=== PATIENT | female | born 1985 | race Two or more races ===

== ENCOUNTER 2017-05-25 16:37 | Inpatient (IN) | payer MEDICARE, OTHER ==
[~2017-05-25] VITALS: Ht 160 cm; Wt 103.0 kg
[~2017-05-25 16:37] MED LIST: BIOTIN PO; FLUT9.9S NS; HYDR-2766 PO; HYDR-963 PO; IBUP-1060 PO; LORA10TA3 PO; MIRENA VAG; MULT1TAB52 PO; OXYC-327 PO
--- NOTE | 2017-05-25 17:46 | PDOC1 ---
OB - History Hx of Present Care: Good Care Ultrasounds: Abnormal US findings (cervical funneling with cervical length less than 0.5 cm at MFM visit. Pessary placed at that time. ) Obstetrical Complications: Other (H/o PTD x2) Medical Complications: Other (Family h/o blood clots) Past Family/Social History * Past Medical, Surgical, Family and Obstetric Histories reviewed from chart. Rubella: Immune RPR/VDRL: Negative GBS Status: Unknown HBsAG: Negative OB - Chief Complaint & HPI Date of Admission: Date of Admission: May 25, 2017 at 16:37 Chief Complaint/History : 3 Para: 2 EGA: 20 Reason for admission: labor Admission Nurse Assessment Rev: Yes Problems: OB - Admission Exam Physical Exam HEENT: Normal Heart: Regular Rate Lungs: Clear Abdomen: Gravid, Non tender, Soft Extremities: Normal Pulses, No tenderness or swelling Reflexes: Normal Cervical Dilatation: 10cm Effacement: 100% Station: -1 Membranes: Intact Heart Rate: Normal Accelerations: Accelerations Present Decelerations: No decelerations Contractions on Admission: None Intensity: Mild Text A: 20 wks IUP PTL with pessary in place H/o PTD x 2 Family h/o blood clotting d/o P: Admit for comfort care. Labs and IV fluids. Sono today. LIAN HUITRON Jr, MD May 25, 2017 17:46
[2017-05-25] MEDS ORDERED: LIDOCAINE 1% PF 30 ML VIAL. INJ PRN (18:00)
[2017-05-25] MEDS ORDERED: TERBUTALINE 1 MG/ML VIAL. SQ PRN (18:00)
[2017-05-25] MEDS ORDERED: OXYTOCIN 30 UNIT/500 ML PREMIX 500 ML IV PRN (18:00)
[2017-05-25] MEDS ORDERED: 0.9 % SODIUM CHLORIDE 10 ML DISP.SYRIN. IV PRN (18:00)
--- NOTE | 2017-05-25 19:04 | RAD ---
Indication: Patient 20 weeks fully dilated. There is a live intrauterine fetus of approximately 21 weeks 5 days gestation. heart rate was recorded at 152 bpm. Fetus is in a breech presentation. The placenta is anterior. The cervix is open. Biometry measurements are as follows: BPD 4.9 cm 20 weeks 6 days, head circumference 19.3 cm 21 weeks 4 days, abdominal circumference 16.5 cm 21 weeks 4 days, femur length 4.0 cm 23 weeks 0 days. Estimated weight is 1 lb. 1 oz. is. IMPRESSION: Single live IUP approximately 21-22 weeks gestational age. The fetus is breech. The cervix is open with membranes extending into the endocervical canal. Estimated weight is 1 lb. 1 oz. Electronically signed by: Marcelo Lux MD (05/25/2017 7:02 PM) [facility]
[2017-05-25 19:46] LABS: HEMATOCRIT 38.4 % (36.0-47.0); HEMOGLOBIN 12.7 g/dL (12.0-15.5); RED BLOOD COUNT 4.47 x10^6/uL (3.50-5.40); RED CELL DISTRIBUTION WIDTH 13.5 % (11.5-14.5); WHITE BLOOD COUNT 10.8 x10^3/uL (4.0-11.0)
[2017-05-25 20:36] VITALS: BP 119/72
[2017-05-25] MEDS: IV RINGERS,LACTATED 1000ML 1,000 ML IV SCH (21:06)
[2017-05-26] MEDS ORDERED: ASPIRIN CHEWABLE 81 MG TABLET. PO SCH ×2 (08:00→21:00)
[2017-05-26] MEDS ORDERED: DOCUSATE SODIUM 100 MG CAPSULE. PO SCH (09:00)
[2017-05-26 11:48] LABS: BILIRUBIN,URINE NEGATIVE (NEG); GLUCOSE,URINE NEGATIVE (NEG); NITRITE,URINE NEGATIVE (NEG); PH,URINE 7.5; PROTEIN,URINE 30 mg/dL (NEG-TRACE); UROBILINOGEN,URINE 0.2 mg/dL (0.2 mg/dL)
[2017-05-26 11:50] LABS: BACTERIA,URINE FEW /HPF (0-FEW); SQUAMOUS EPITHELIAL CELL,UR MOD /LPF
--- NOTE | 2017-05-26 13:58 | PDOC ---
OB Progress Note Date of Service 05/26/17 Time of Evaluation 1350 Notes Pt. reports occasional contractions and vaginal spotting. Counseled on plan of care. Lab Laboratory Tests Test 05/25/17 19:25 05/26/17 10:45 White Blood Count 10.8 x10^3/uL (4.0-11.0) Red Blood Count 4.47 x10^6/uL (3.50-5.40) Hemoglobin 12.7 g/dL (12.0-15.5) Hematocrit 38.4 % (36.0-47.0) Mean Corpuscular Volume 86 fL (79-100) Mean Corpuscular Hemoglobin 28 pg (25-35) Mean Corpuscular Hemoglobin Concent 33 g/dL (31-37) Red Cell Distribution Width 13.5 % (11.5-14.5) Platelet Count 172 x10^3/uL (140-400) Urine Collection Type Unknown Urine Color Yellow Urine Clarity Clear Urine pH 7.5 Urine Specific [place] 1.010 Urine Protein 30 mg/dL (NEG-TRACE) Urine Glucose (UA) Negative mg/dL (NEG) Urine Ketones (Stick) Negative mg/dL (NEG) Urine Blood Large (NEG) Urine Nitrite Negative (NEG) Urine Bilirubin Negative (NEG) Urine Urobilinogen Dipstick 0.2 mg/dL (0.2 mg/dL) Urine Leukocyte Esterase Moderate (NEG) Urine RBC 11-20 /HPF (0-2) Urine WBC 1-4 /HPF (0-4) Urine Squamous Epithelial Cells Mod /LPF Urine Bacteria Few /HPF (0-FEW) Laboratory Tests Test 05/25/17 19:25 05/26/17 10:45 White Blood Count 10.8 x10^3/uL (4.0-11.0) Red Blood Count 4.47 x10^6/uL (3.50-5.40) Hemoglobin 12.7 g/dL (12.0-15.5) Hematocrit 38.4 % (36.0-47.0) Mean Corpuscular Volume 86 fL (79-100) Mean Corpuscular Hemoglobin 28 pg (25-35) Mean Corpuscular Hemoglobin Concent 33 g/dL (31-37) Red Cell Distribution Width 13.5 % (11.5-14.5) Platelet Count 172 x10^3/uL (140-400) Urine Collection Type Unknown Urine Color Yellow Urine Clarity Clear Urine pH 7.5 Urine Specific [place] 1.010 Urine Protein 30 mg/dL (NEG-TRACE) Urine Glucose (UA) Negative mg/dL (NEG) Urine Ketones (Stick) Negative mg/dL (NEG) Urine Blood Large (NEG) Urine Nitrite Negative (NEG) Urine Bilirubin Negative (NEG) Urine Urobilinogen Dipstick 0.2 mg/dL (0.2 mg/dL) Urine Leukocyte Esterase Moderate (NEG) Urine RBC 11-20 /HPF (0-2) Urine WBC 1-4 /HPF (0-4) Urine Squamous Epithelial Cells Mod /LPF Urine Bacteria Few /HPF (0-FEW) Medications Current Medications Sodium Chloride (Normal Saline Flush) 3 ml QSHIFT PRN IV AFTER MEDS AND BLOOD DRAWS; Start 05/25/17 at 18:00 Ringer's Solution 1,000 ml @ 125 mls/hr Q8H IV Last administered on 05/25/17 21:06; Start 05/25/17 at 17:55 Fentanyl Citrate (Fentanyl 2ml Vial) 100 mcg PRN Q20MIN PRN IV Labor pain; Start 05/25/17 at 18:00 Terbutaline Sulfate (Brethine) 0.25 mg 1X PRN PRN SQ SEE COMMENTS; Start at 18:00; Stop 05/26/17 at 17:59 Lidocaine HCl 30 ml 1X PRN PRN INJ SEE COMMENTS; Start 05/25/17 at 18:00; Stop 05/27/17 at 17:59 Oxytocin/Sodium Chloride 500 ml @ 0 mls/hr CONT PRN PRN IV Post delivery bleeding; Start 05/25/17 at 18:00 Aspirin (Children'S Aspirin) 81 mg DAILYWBKFT PO Last administered on 05/25/17 21:06; Start 05/26/17 at 08:00; Stop 05/26/17 at 08:00; Status DC Aspirin (Children'S Aspirin) 81 mg QHS PO ; Start 05/26/17 at 21:00 Docusate Sodium (Colace) 100 mg DAILY PO Last administered on 05/26/17 09:44; Start 05/26/17 at 09:00 Active Scripts Active Percocet 7.5-325 Mg Tablet (Oxycodone/Acetaminophen) 1 Each Tablet 1-2 Tab PO PRN Q6HRS PRN Reported [Mirena] VAG Not taken while in hosp. May resume at home as directed. Loratadine 10 Mg Tablet 1 Tab PO DAILY Not given in hosp. May resume at home as directed as needed. [Biotin] 1,000 Mcg PO DAILY Not taken while in hosp. May resume at home as directed Multivitamins (Multivitamin) 1 Each Tablet 1 Tab PO DAILY Not given while in hosp. MAy resume at home as directed as needed. Flonase Allergy Relief (Fluticasone Propionate) 9.9 Ml [place].susp 9.9 Ml NS PRN PRN Not given while in hosp. May resume at home as directed as needed Ibuprofen 800 Mg Tablet 1 Tab PO PRN BID PRN Not taken while in hosp. May resume at home as directed as needed. Exam Abd: soft, non tender Assessment 20+4 wks IUP PTL Plan of Care: Continue current Tx, Mgmt LIAN HUITRON Jr, MD May 26, 2017 13:58
[2017-05-26] MEDS ORDERED: hydrOXYzine PAMOATE 25 MG CAPSULE PO PRN (14:15)
[2017-05-26] MEDS: fentaNYL PF VIAL 100 MCG/2 ML VIAL IV PRN ×3 (15:40→17:46)
[2017-05-26] MEDS: IV RINGERS,LACTATED 1000ML 1,000 ML IV SCH (16:49)
[2017-05-26] MEDS: BUTORPHANOL 2 MG/ML VIAL. IV PRN ×2 (18:36→22:37)
--- NOTE | 2017-05-26 20:42 | PDOC ---
VAGINAL DELIVERY DATE DATE: 05/26/17 TIME: 20:40 : 3 Para: 3 EGA: 20 VAGINAL DELIVERY: VTX VACCUM ASSISTED: No PLACENTA: Manual 0/0 SEX: Female WEIGHT Weight [345 gm ] Nuchal Cord: No Amniotic Fluid: Clear PAIN: Natural EPISIOTOMY: No EXTENSION: No EBL 200 ml COMPLICATIONS IUFD CONDITION pt. stable Signs of Intrauterine Infectio: None Shoulder Dystocia: No Problems: LIAN HUITRON Jr, MD May 26, 2017 20:42
[2017-05-26] MEDS ORDERED: OXYTOCIN 30 UNIT/500 ML PREMIX 500 ML IV PRN (20:45)
[2017-05-26] MEDS ORDERED: oxyCODONE/APAP 5/325 1 TAB TABLET PO PRN (20:45)
[2017-05-26] MEDS ORDERED: SIMETHICONE 80 MG TAB.CHEW PO PRN (20:45)
[2017-05-26] MEDS ORDERED: HYDROCORTISONE 1% TOPICAL OINTMENT 30GM TUBE. TP PRN (20:45)
[2017-05-26] MEDS ORDERED: PHENYLEPH/MINERAL OIL/PETROLAT RECTAL OINTMENT 28GM TUBE. RC PRN (20:45)
[2017-05-26] MEDS ORDERED: diphenhydrAMINE HCL 25 MG CAPSULE PO PRN (20:45)
[2017-05-26] MEDS ORDERED: MAGNESIUM HYDROXIDE 2,400 MG/30 ML ORAL.SUSP. PO PRN (20:45)
[2017-05-26] MEDS ORDERED: MAG HYDROX/ALUMINUM HYD/SIMETH 30 ML ORAL.SUSP PO PRN (20:45)
[2017-05-26] MEDS ORDERED: MMR per PROTOCOL. MC PRN (20:45)
[2017-05-26] MEDS ORDERED: ZOLPIDEM 5 MG TABLET. PO PRN (20:45)
[2017-05-26] MEDS ORDERED: DOCUSATE SODIUM 100 MG CAPSULE. PO PRN (20:45)
[2017-05-26] MEDS ORDERED: BENZOCAINE 20% TOPICAL AEROSOL SPRAY 57GM CAN. TP PRN (20:45)
[2017-05-26] MEDS ORDERED: ACETAMINOPHEN 325 MG TABLET. PO PRN (20:45)
[2017-05-26] MEDS ORDERED: 0.9 % SODIUM CHLORIDE 10 ML DISP.SYRIN. IV PRN (20:45)
[2017-05-26] MEDS: IBUPROFEN 800 MG TABLET. PO PRN (22:37)
[2017-05-26 23:26] VITALS: BP 112/58
[2017-05-27 04:37] VITALS: BP 109/62
[2017-05-27 07:02] LABS: BASO % 0 % (0-3); EOS % 1 % (0-3); HEMOGLOBIN 10.5 g/dL (12.0-15.5); LYMPH # 1.7 x10^3/uL (1.0-4.8); LYMPH % 11 % (24-48); MEAN CORPUSCULAR HEMOGLOBIN 29 pg (25-35); MEAN CORPUSCULAR HGB CONC 34 g/dL (31-37); MEAN CORPUSCULAR VOLUME 86 fL (79-100); MONO % 6 % (0-9); NEUT % 82 % (31-73); PLATELET COUNT 141 x10^3/uL (140-400); RED CELL DISTRIBUTION WIDTH 13.5 % (11.5-14.5); WHITE BLOOD COUNT 14.9 x10^3/uL (4.0-11.0)
[2017-05-27] MEDS ORDERED: FERROUS SULFATE 325 MG TABLET. PO SCH (08:00)
[2017-05-27] MEDS: IBUPROFEN 800 MG TABLET. PO PRN (09:00)
[2017-05-27 11:20] VITALS: BP 109/65
[2017-05-27 13:45] VITALS: BP 107/64
--- NOTE | 2017-05-27 14:04 | PDOC ---
OB Progress Note Date of Service 05/27/17 Time of Evaluation 1400 Notes PT. feeling well. GOod family support. Lochia minimal. Pain controlled. Lab Laboratory Tests Test 05/25/17 19:25 05/26/17 10:45 05/27/17 06:18 White Blood Count 10.8 x10^3/uL (4.0-11.0) 14.9 x10^3/uL (4.0-11.0) Red Blood Count 4.47 x10^6/uL (3.50-5.40) 3.60 x10^6/uL (3.50-5.40) Hemoglobin 12.7 g/dL (12.0-15.5) 10.5 g/dL (12.0-15.5) Hematocrit 38.4 % (36.0-47.0) 31.0 % (36.0-47.0) Mean Corpuscular Volume 86 fL (79-100) 86 fL (79-100) Mean Corpuscular Hemoglobin 28 pg (25-35) 29 pg (25-35) Mean Corpuscular Hemoglobin Concent 33 g/dL (31-37) 34 g/dL (31-37) Red Cell Distribution Width 13.5 % (11.5-14.5) 13.5 % (11.5-14.5) Platelet Count 172 x10^3/uL (140-400) 141 x10^3/uL (140-400) Urine Collection Type Unknown Urine Color Yellow Urine Clarity Clear Urine pH 7.5 Urine Specific [place] 1.010 Urine Protein 30 mg/dL (NEG-TRACE) Urine Glucose (UA) Negative mg/dL (NEG) Urine Ketones (Stick) Negative mg/dL (NEG) Urine Blood Large (NEG) Urine Nitrite Negative (NEG) Urine Bilirubin Negative (NEG) Urine Urobilinogen Dipstick 0.2 mg/dL (0.2 mg/dL) Urine Leukocyte Esterase Moderate (NEG) Urine RBC 11-20 /HPF (0-2) Urine WBC 1-4 /HPF (0-4) Urine Squamous Epithelial Cells Mod /LPF Urine Bacteria Few /HPF (0-FEW) Neutrophils (%) (Auto) 82 % (31-73) Lymphocytes (%) (Auto) 11 % (24-48) Monocytes (%) (Auto) 6 % (0-9) Eosinophils (%) (Auto) 1 % (0-3) Basophils (%) (Auto) 0 % (0-3) Neutrophils # (Auto) 12.2 x10^3uL (1.8-7.7) Lymphocytes # (Auto) 1.7 x10^3/uL (1.0-4.8) Monocytes # (Auto) 0.9 x10^3/uL (0.0-1.1) Eosinophils # (Auto) 0.1 x10^3/uL (0.0-0.7) Basophils # (Auto) 0.0 x10^3/uL (0.0-0.2) Laboratory Tests Test 05/27/17 06:18 White Blood Count 14.9 x10^3/uL (4.0-11.0) Red Blood Count 3.60 x10^6/uL (3.50-5.40) Hemoglobin 10.5 g/dL (12.0-15.5) Hematocrit 31.0 % (36.0-47.0) Mean Corpuscular Volume 86 fL (79-100) Mean Corpuscular Hemoglobin 29 pg (25-35) Mean Corpuscular Hemoglobin Concent 34 g/dL (31-37) Red Cell Distribution Width 13.5 % (11.5-14.5) Platelet Count 141 x10^3/uL (140-400) Neutrophils (%) (Auto) 82 % (31-73) Lymphocytes (%) (Auto) 11 % (24-48) Monocytes (%) (Auto) 6 % (0-9) Eosinophils (%) (Auto) 1 % (0-3) Basophils (%) (Auto) 0 % (0-3) Neutrophils # (Auto) 12.2 x10^3uL (1.8-7.7) Lymphocytes # (Auto) 1.7 x10^3/uL (1.0-4.8) Monocytes # (Auto) 0.9 x10^3/uL (0.0-1.1) Eosinophils # (Auto) 0.1 x10^3/uL (0.0-0.7) Basophils # (Auto) 0.0 x10^3/uL (0.0-0.2) Medications Current Medications Sodium Chloride (Normal Saline Flush) 3 ml QSHIFT PRN IV AFTER MEDS AND BLOOD DRAWS; Start 05/25/17 at 18:00 Ringer's Solution 1,000 ml @ 125 mls/hr Q8H IV Last administered on 05/26/17 16:49; Start 05/25/17 at 17:55 Fentanyl Citrate (Fentanyl 2ml Vial) 100 mcg PRN Q20MIN PRN IV Labor pain Last administered on 05/26/17 17:46; Start 05/25/17 at 18:00 Terbutaline Sulfate (Brethine) 0.25 mg 1X PRN PRN SQ SEE COMMENTS; Start at 18:00; Stop 05/26/17 at 17:59; Status DC Lidocaine HCl 30 ml 1X PRN PRN INJ SEE COMMENTS; Start 05/25/17 at 18:00; Stop 05/27/17 at 17:59 Oxytocin/Sodium Chloride 500 ml @ 0 mls/hr CONT PRN PRN IV Post delivery bleeding Last administered on 05/26/17 19:09; Start 05/25/17 at 18:00 Aspirin (Children'S Aspirin) 81 mg DAILYWBKFT PO Last administered on 05/25/17 21:06; Start 05/26/17 at 08:00; Stop 05/26/17 at 08:00; Status DC Aspirin (Children'S Aspirin) 81 mg QHS PO ; Start 05/26/17 at 21:00 Docusate Sodium (Colace) 100 mg DAILY PO Last administered on 05/26/17 09:44; Start 05/26/17 at 09:00 Hydroxyzine Pamoate (Vistaril) 25 mg PRN Q6HRS PRN PO ITCHING Last administered on 05/26/17 14:30; Start 05/26/17 at 14:15 Butorphanol Tartrate (Stadol) 2 mg PRN Q4HRS PRN IV PAIN Last administered on 22:37; Start 05/26/17 at 18:30 Sodium Chloride (Normal Saline Flush) 10 ml QSHIFT PRN IV AFTER MEDS AND BLOOD DRAWS; Start 05/26/17 at 20:45 Oxytocin/Sodium Chloride 500 ml @ 62.5 mls/hr CONT PRN IV SEE I/O RECORD; Start 05/26/17 at 20:45; Stop 05/27/17 at 04:44; Status DC Acetaminophen (Tylenol) 650 mg PRN Q6HRS PRN PO MILD PAIN / TEMP; Start at 20:45 Ibuprofen (Motrin) 800 mg PRN Q8HRS PRN PO INFLAMMATION/PAIN PREVENTION Last administered on 05/27/17 09:00; Start 05/26/17 at 20:45 Docusate Sodium (Colace) 100 mg PRN BID PRN PO CONSTIPATION Last administered on 05/27/17 09:00; Start 05/26/17 at 20:45 Magnesium Hydroxide (Milk Of Magnesia) 2,400 mg PRN DAILY PRN PO CONSTIPATION; Start 05/26/17 at 20:45 Al Hydroxide/Mg Hydroxide (Mylanta Plus Xs) 30 ml PRN Q4HRS PRN PO HEARTBURN / GAS; Start 05/26/17 at 20:45 Simethicone (Gas-X) 80 mg PRN AFTMEALHC PRN PO GAS / BLOATING; Start 05/26/17 at 20:45 Diphenhydramine HCl (Benadryl) 25 mg PRN Q6HRS PRN PO ITCHING; Start 05/26/17 at 20:45 Benzocaine (Americaine) 1 spray PRN QID PRN TP TOPICAL PAIN Last administered on 05/26/17 22:37; Start 05/26/17 at 20:45 Phenyleph/Shark Oil/Min Oil/Petrol (Preparation H) 1 [place] PRN QID PRN RC RECTAL PAIN; Start 05/26/17 at 20:45 Hydrocortisone (Cortaid) 1 [place] PRN QID PRN TP PERINEAL PAIN; Start 05/26/17 at 20:45 Ferrous Sulfate (Feosol) 325 mg BIDWMEALS PO ; Start 05/27/17 at 08:00 Zolpidem Tartrate (Ambien) 5 mg PRN QHS PRN PO INSOMNIA, MAY REPEAT X1; Start 05/26/17 at 20:45 Info (Do NOT chart on this placeholder) 1 ea 1X PRN PRN MC SEE COMMENTS; Start 05/26/17 at 20:45 Info (Do NOT chart on this placeholder) 1 ea 1X PRN PRN MC SEE COMMENTS; Start 05/26/17 at 20:45 Oxycodone/ Acetaminophen (Percocet 5/325) 2 tab PRN Q4HRS PRN PO MODERATE PAIN , SEVERE PAIN; Start 05/26/17 at 20:45 Active Scripts Active Percocet 7.5-325 Mg Tablet (Oxycodone/Acetaminophen) 1 Each Tablet 1-2 Tab PO PRN Q6HRS PRN Reported [Mirena] VAG Not taken while in hosp. May resume at home as directed. Loratadine 10 Mg Tablet 1 Tab PO DAILY Not given in hosp. May resume at home as directed as needed. [Biotin] 1,000 Mcg PO DAILY Not taken while in hosp. May resume at home as directed Multivitamins (Multivitamin) 1 Each Tablet 1 Tab PO DAILY Not given while in hosp. MAy resume at home as directed as needed. Flonase Allergy Relief (Fluticasone Propionate) 9.9 Ml [place].susp 9.9 Ml NS PRN PRN Not given while in hosp. May resume at home as directed as needed Ibuprofen 800 Mg Tablet 1 Tab PO PRN BID PRN Not taken while in hosp. May resume at home as directed as needed. Exam Abd: soft, non tender, fundus firm Assessment PPD#1 s/p of IUFD Plan of Care: See new orders (D/c home) LIAN HUITRON Jr, MD May 27, 2017 14:04
--- NOTE | 2017-05-27 14:04 | DISCH ---
DISCHARGE INSTRUCTIONS Condition on Discharge Condition on Discharge: Stable Activity After Discharge Activity Instructions for Disc: Activity as tolerated Lifting Instructions after Dis: No heavy lifting Driving Instructions after Dis: Do not drive today Diet after Discharge Diet after Discharge: Regular Contacting the DRNatalia after DC Call your doctor for: Concerns you may have Follow-Up Follow up with: Dr. Holm in 2 week. LIAN HOLM Jr, MD May 27, 2017 14:04
[2017-05-27 22:07] LABS: RPR REFLEX Non Reactive (Non Reactive)
--- NOTE | 2017-05-31 16:01 | PATHOLOGY ---
PATHOLOGY REPORT * * * * * * * * FINAL DIAGNOSIS: Placenta, " vaginal delivery, gestational age 20.4 weeks": - Placental weight 122 grams. - Three-vessel umbilical cord eccentrically located without any knots or helical twisting. - Moderate acute funisitis. - Moderate acute chorioamnionitis. - Retromembranous hematoma. - Mild meconium staining of membrane. - Intravillous edema. - Intraplacental hematoma. - Severely grossly disrupted placenta with moderate amount of adherent blood coagulum. (SHA:mgr; 05/31/2017) COMMENT: This case will also be reviewed by another pathologist and if there are any changes an additional report will follow. REPORT ELECTRONICALLY SIGNED BY: Rico Hardy M.D. DATE/TIME: 05/31/2017 16:00 * * * * * * * * GROSS PATHOLOGY: The specimen is received in formalin labeled "Yeyo Rowell, placenta". Received is a 122 g severely disrupted placenta measuring 10.3 x 10.2 x 2.9 cm in greatest dimensions. There is a scant amount of pale guthrie, translucent membranes present. The site of membrane rupture cannot be determined. The surface is disrupted in appearance and displays a normal arborizing vasculature pattern. The 3 vessel umbilical cord measures 19.5 cm in length by 1.1 cm in diameter and inserts acentrically, 2.5 cm from the closest distal margin. The umbilical cord is white-guthrie lowery in appearance with no evidence of helical twisting. The maternal surface is disrupted and shaggy in appearance. A moderate amount of adherent blood coagulum is present. Sectioning reveals light brown cut surfaces with no grossly distinct nodules or lesions. The specimen is submitted representatively as follows: A1 umbilical cordA2 surface vessels and membrane roll A3 full-thickness placental cross-section A4 international representative sections from area of disruption. (CAA; 05/30/2017) INITIAL CPT CODE(S): A; 32814 Professional services performed by [facility] at [address] [address] Technical services performed by [facility] at [address] [place] [address], [address], [place] [address]. SPECIMEN(S) RECEIVED: A.Placenta-20.4 week gestation CLINICAL HISTORY: vaginal delivery of 12oz female @ 1902 on 7/8/17, apgars 1-1-1, EDC 10/09/17, PATIENT: YEYO ROWELL /AGE: 908/13/1985 (Age: 31) PATIENT #: [id number] ALT CASE #: SPECIMEN COLLECTION DATE: 05/26/2017 SPECIMEN RECEIVED DATE: 05/28/2017 [facility] - [address] [place] [address] - PHONE: [phone] * * * END OF REPORT * * *
== END 2017-05-27 14:50 | disposition home or self-care (01) | DRG 775 ==
LOC: 3 SO LND 16:37 → OBSVTOIN 16:37 → 3 NORTH 05-26 22:50
PROVIDERS: ADMIT Obstetrics & Gynecology; ATTEND Obstetrics & Gynecology
PROC: 10E0XZZ Delivery of Products of Conception, External Approach (ICD-10-PCS; principal; 2017-05-26)
DX: O36.4XX0 Maternal care for intrauterine death, not applicable or unspecified (principal); Z37.1 Single stillbirth; Z3A.20 20 weeks gestation of pregnancy
CPT/HCPCS: 36415; 76815; 81001; 85027; 86593; 86850; 86900; 86901; C1887; G0378; J2590; J3010; J7120; Q0177

== ENCOUNTER 2017-05-29 20:48 | Emergency (ER) | payer MEDICARE, OTHER ==
[~2017-05-29] VITALS: Ht 167.6 cm; Wt 102.5 kg
--- NOTE | 2017-05-29 21:48 | PHYS DOC ---
Past Medical History Additional Past Medical Histor: miscarraige Alcohol Use: Rarely Drug Use: None Adult General Chief Complaint Chief Complaint: VAGINAL BLEEDING HPI HPI 31 yo F s/p a miscaraige on the 27 of may here on the OB floor. She presents to the ED with vag bleeding. she reports 1 pad per hour for a few hours. onset today. location . duration intermittent. no alleviating or exacerbating factors. Rh + on chart review. ROS neg for syncope, vision changes, n/v/d, cp, soa. all other ros is neg unless noted in HPI. ed course: 31 y.o F presenting to the ED with vaginal bleeding. vitals: [ Unremarkable]. Abd is physical exam is soft and nontender. orthostatic unremarkable. pt given ivf. pt has appt with dori in the am. Pt d/[place] with return precautions. I discussed with Dr. Caballero and he agrees with plan to see the patient on morning in clinic. Current Medications Current Medications Current Medications Medications (Trade) Dose Ordered Sig/[place] Start Time Stop Time Status Last Admin Dose Admin Sodium Chloride 1,000 ml @ 1,000 mls/hr 1X ONCE 05/29/17 22:00 05/29/17 22:44 DC 05/29/17 21:46 1,000 MLS/HR Allergies Allergies Allergies Coded Allergies Type Severity Reaction Last Updated Verified No Known Drug Allergies 02/28/16 No Physical Exam Physical Exam Constitutional: Well developed, well nourished, no acute distress, non-toxic appearance. [] HENT: Normocephalic, atraumatic, bilateral external ears normal, oropharynx moist, no oral exudates, nose normal. [] Eyes: PERRLA, EOMI, conjunctiva normal, no discharge. [] Neck: Normal range of motion, no tenderness, supple, no stridor. [] Cardiovascular:Heart rate regular rhythm, no murmur [] Lungs & Thorax: Bilateral breath sounds clear to auscultation [] Abdomen: Bowel sounds normal, soft, no tenderness, no masses, no pulsatile masses. [] Skin: Warm, dry, no erythema, no rash. [] Back: No tenderness, no CVA tenderness. [] Extremities: No tenderness, no cyanosis, no clubbing, ROM intact, no edema. [] Neurologic: Alert and oriented X 3, normal motor function, normal sensory function, no focal deficits noted. [] Psychologic: Affect normal, judgement normal, mood normal. [] Current Patient Data Vital Signs Vital Signs Date Time Temp Pulse Resp B/P (MAP) Pulse Ox O2 Delivery O2 Flow Rate FiO2 05/29/17 22:36 80 129/70 (89) 05/29/17 22:28 98 Room Air 05/29/17 22:21 20 05/29/17 21:50 98.6 98.6 Lab Values Laboratory Tests Test 05/29/17 20:34 05/29/17 21:38 POC Urine HCG, Qualitative Hcg positive (Negative) White Blood Count 9.8 x10^3/uL (4.0-11.0) Red Blood Count 3.82 x10^6/uL (3.50-5.40) Hemoglobin 11.1 g/dL (12.0-15.5) L Hematocrit 32.8 % (36.0-47.0) L Mean Corpuscular Volume 86 fL (79-100) Mean Corpuscular Hemoglobin 29 pg (25-35) Mean Corpuscular Hemoglobin Concent 34 g/dL (31-37) Red Cell Distribution Width 13.7 % (11.5-14.5) Platelet Count 137 x10^3/uL (140-400) L Neutrophils (%) (Auto) 75 % (31-73) H Lymphocytes (%) (Auto) 18 % (24-48) L Monocytes (%) (Auto) 5 % (0-9) Eosinophils (%) (Auto) 2 % (0-3) Basophils (%) (Auto) 0 % (0-3) Neutrophils # (Auto) 7.3 x10^3uL (1.8-7.7) Lymphocytes # (Auto) 1.8 x10^3/uL (1.0-4.8) Monocytes # (Auto) 0.5 x10^3/uL (0.0-1.1) Eosinophils # (Auto) 0.2 x10^3/uL (0.0-0.7) Basophils # (Auto) 0.0 x10^3/uL (0.0-0.2) Sodium Level 141 mmol/L (136-145) Potassium Level 3.2 mmol/L (3.5-5.1) L Chloride Level 106 mmol/L (98-107) Carbon Dioxide Level 26 mmol/L (21-32) Anion Gap 9 (6-14) Blood Urea Nitrogen 6 mg/dL (7-20) L Creatinine 0.7 mg/dL (0.6-1.0) Estimated GFR (Cockcroft-Gault) 97.6 Glucose Level 100 mg/dL (70-99) H Calcium Level 8.7 mg/dL (8.5-10.1) Laboratory Tests 05/29/17 21:38 Laboratory Tests 05/29/17 21:38 EKG EKG [] Radiology/Procedures Radiology/Procedures [] Course & Med Decision Making Course & Med Decision Making Pertinent Labs and Imaging studies reviewed. (See chart for details) [] Dragon Disclaimer Dragon Disclaimer This electronic medical record was generated, in whole or in part, using a voice recognition dictation system. Departure Departure Impression: Primary Impression: Vaginal bleeding Disposition: HOME, SELF-CARE Condition: STABLE Referrals: ELLIE CHOI MD (PCP) Patient Instructions: Hemorrhage, Heavy Bleeding Following Delivery MARLON PEREZ MD May 29, 2017 21:48
[2017-05-29 21:49] LABS: BASO % 0 % (0-3); EOS % 2 % (0-3); HEMATOCRIT 32.8 % (36.0-47.0); HEMOGLOBIN 11.1 g/dL (12.0-15.5); LYMPH # 1.8 x10^3/uL (1.0-4.8); LYMPH % 18 % (24-48); MEAN CORPUSCULAR HEMOGLOBIN 29 pg (25-35); MEAN CORPUSCULAR HGB CONC 34 g/dL (31-37); MEAN CORPUSCULAR VOLUME 86 fL (79-100); MONO % 5 % (0-9); NEUT % 75 % (31-73); PLATELET COUNT 137 x10^3/uL (140-400); RED BLOOD COUNT 3.82 x10^6/uL (3.50-5.40); RED CELL DISTRIBUTION WIDTH 13.7 % (11.5-14.5); WHITE BLOOD COUNT 9.8 x10^3/uL (4.0-11.0)
[2017-05-29] MEDS ORDERED: IV NORMAL SALINE 1000ML BAG 1,000 ML IV ONE (22:00)
[2017-05-29 22:01] LABS: CALCIUM 8.7 mg/dL (8.5-10.1); CREATININE 0.7 mg/dL (0.6-1.0); GFR 97.6; POTASSIUM 3.2 mmol/L (3.5-5.1)
[2017-05-29 22:36] VITALS: BP 129/70
== END 2017-05-29 22:43 | disposition home or self-care (01) ==
LOC: ER 20:48
DX: N93.9 Abnormal uterine and vaginal bleeding, unspecified (principal)
CPT/HCPCS: 36415; 80048; 81025; 85027; 96360; 99284; J7030

== ENCOUNTER 2017-09-29 19:08 | Emergency (ER) | payer MEDICARE, OTHER ==
[~2017-09-29] VITALS: Ht 167.6 cm; Wt 103.0 kg
[2017-09-29 19:20] VITALS: BP 140/65
--- NOTE | 2017-09-29 19:23 | PHYS DOC ---
Past Medical History Past Medical History: Asthma Additional Past Medical Histor: miscarraige,DEAF Past Surgical History: Other Additional Past Surgical Histo: BILATERAL KNEE, R. ANKLE, L. SHOULDER, R. EAR Alcohol Use: Rarely Drug Use: None Adult General Chief Complaint Chief Complaint: FOOT INJURY PAIN [facility] HPI Patient is a 32 year old female presents to the emergency department on crutches with complaint of right foot pain and discomfort. She states that she was playing football when she was doing [employer] drills. She states that she cut outward and heard a pop in her foot. She is complaining of pain along the fourth and fifth metatarsal area. She is unable to bear weight. She has taken ibuprofen for the pain and discomfort. She denies any numbness or tingling into the foot. She is able to move her toes without difficulty. Cap refill brisk less than 2 seconds good sensation noted. Review of Systems Review of Systems Constitutional: Denies fever or chills [] Eyes: Denies change in visual acuity, redness, or eye pain [] HENT: Denies nasal congestion or sore throat [] Respiratory: Denies cough or shortness of breath [] Cardiovascular: No additional information not addressed in HPI [] GI: Denies abdominal pain, nausea, vomiting, bloody stools or diarrhea [] : Denies dysuria or hematuria [] Musculoskeletal: Denies back pain. Right foot pain Integument: Denies rash or skin lesions [] Neurologic: Denies headache, focal weakness or sensory changes [] Endocrine: Denies polyuria or polydipsia [] All other systems were reviewed and found to be within normal limits, except as documented in this note. Allergies Allergies Allergies Coded Allergies Type Severity Reaction Last Updated Verified No Known Drug Allergies 02/28/16 No Physical Exam Physical Exam Constitutional: Well developed, well nourished, no acute distress, non-toxic appearance. [] HENT: Normocephalic, atraumatic, bilateral external ears normal, oropharynx moist, no oral exudates, nose normal. [] Eyes: PERRLA, EOMI, conjunctiva normal, no discharge. [] Neck: Normal range of motion, no tenderness, supple, no stridor. [] Cardiovascular:Heart rate regular rhythm Lungs & Thorax: no respiratory distress noted Skin: Warm, dry, no erythema, no rash. [] Extremities: Right 4-5th metatarsal tenderness, no bruising noted, slight swelling noted. No cyanosis, no clubbing, ROM intact, no edema. Peripheral pulses 2+ cap refill brisk < 2 seconds, good sensation noted to the foot. Neurologic: Alert and oriented X 3, normal motor function, normal sensory function, no focal deficits noted. [] Psychologic: Affect normal, judgement normal, mood normal. [] Current Patient Data Vital Signs Vital Signs Date Time Temp Pulse Resp B/P (MAP) Pulse Ox O2 Delivery O2 Flow Rate FiO2 09/29/17 19:20 98.5 74 16 96 Room Air 98.5 Lab Values Laboratory Tests Test 09/29/17 19:27 POC Urine HCG, Qualitative Hcg negative (Negative) EKG EKG [] Radiology/Procedures Radiology/Procedures [] Course & Med Decision Making Course & Med Decision Making Pertinent Labs and Imaging studies reviewed. (See chart for details) Foot x-ray identified a fracture along the fifth metatarsal area per Dr. Peterson. Patient will be placed in a posterior short-leg splint with recommendations for no weightbearing ice packs 20 minutes on 20 minutes several times a day and elevation as much as possible. Patient be provided with hydrocodone for severe pain and discomfort with recommendations to avoid taking this medication if she is to be alert and oriented. Patient did arrive to the emergency department with her crutches. She'll be provided with orthopedic name and number to follow up with. []I've spoken with the patient and/or caregivers. I've explained the patient's condition, diagnosis and treatment plan based on information available to me at this time. I've answered the patient's and/or caregivers questions and addressed any concerns. The patient and/or caregivers have a good understanding the patient's diagnosis, condition and treatment plan as can be expected at this point. Vital signs have been stabilized. The patient's condition is stable for discharge from the emergency department. The patient will pursue further outpatient evaluation with her primary care provider or other designated consulting physician as outlined in the discharge instructions. Patient and/or caregivers are agreeable to this plan of care and follow-up instructions have been explained in detail. The patient and/or caregivers have received these instructions in written format and expressed understanding of these discharge instructions. The patient and her caregivers are aware that if any significant change in condition or worsening of symptoms should prompt him to immediately return to this of the closest emergency department. If an emergent department is not readily available I would encourage him to call 911. Hay Disclaimer Hay Disclaimer This electronic medical record was generated, in whole or in part, using a voice recognition dictation system. Departure Departure Impression: Primary Impression: Foot fracture, right Disposition: 01 HOME, SELF-CARE Condition: STABLE Referrals: ELLIE CHOI MD (PCP) STEVIE DOMINGUEZ II, MD Patient Instructions: Crutch Use, [id number], Foot Fracture-Brief, Splint Care, [id number] Additional Instructions: Activity as tolerated. Keep the splint in place. Ibuprofen 800 mg every 8 hours with [place] if he developed upset stomach. Hydrocodone for severe pain and discomfort. This medication will cause drowsiness do not take any be alert and oriented. Do not remove the splint and follow-up with orthopedic. Ice packs on 20 minutes off 20 minutes several times a day. Elevation as much as possible. No weightbearing on the right foot. Use the crutches for ambulation. Follow-up orthopedic within the next week. Return back to the emergency Department for signs and symptoms of become worse. Scripts Hydrocodone/Apap 5-325 (NORCO 5-325 TABLET) 1 Each Tablet 1 TAB PO PRN Q6HRS Y for PAIN, #15 TAB 0 Refills Prov: ALYCE GREGORY APRN 09/29/17 Splinting Splinting : Location: right foot Hand-Made Type: orthoglass Splint: posterior short leg Problem Qualifiers Primary Impression: Foot fracture, right Encounter type: initial encounter Fracture type: closed Qualified Codes: S92.901A - Unspecified fracture of right foot, initial encounter for closed fracture ALYCE GREGORY SPECIMEN TECHNICIAN Sep 29, 2017 19:23
[2017-09-29] MEDS ORDERED: HYDR-971 PO (20:12)
--- NOTE | 2017-09-30 07:54 | RAD ---
EXAM: Right foot and ankle, 3 views. HISTORY: Football injury. COMPARISON: None. FINDINGS: Frontal, lateral and mortise views of the right ankle and frontal, lateral and oblique views of the right foot are obtained. There is internal fixation of healed distal fibular diaphyseal and medial malleolar fractures. The ankle mortises intact. No osteochondral lesion is seen. There is a minimally displaced fracture within the proximal fifth metatarsal. There is a hallux valgus deformity. IMPRESSION: 1. Minimally displaced fracture within the proximal fifth metatarsal. 2. Right hallux valgus deformity. 3. Internal fixation of healed distal fibular and medial malleolar fractures.
== END 2017-09-29 20:35 | disposition home or self-care (01) ==
LOC: ER 19:08
DX: S92.901A Unspecified fracture of right foot, initial encounter for closed fracture (principal); J45.909 Unspecified asthma, uncomplicated; X50.3XXA Overexertion from repetitive movements, initial encounter; Y93.61 Activity, american tackle football; Y99.8 Other external cause status; Y92.89 Other specified places as the place of occurrence of the external cause
CPT/HCPCS: 29515; 73610; 73630; 81025; 99284-25

== ENCOUNTER 2017-11-06 10:33 | Day surgery (SDC) | payer MEDICARE, OTHER ==
[~2017-11-06 10:33] MED LIST changes: +BIRTH CONTROL PILL PO; +CALC-98 PO; +HYDR-971 PO; +HYDROmorphone 2 MG/ML VIAL IV PRN; +IV RINGERS,LACTATED 1000ML 1,000 ML IV SCH; +LIDOCAINE 1% PF 2 ML VIAL. ID PRN; +ONDANSETRON PF 4 MG/2 ML VIAL. IV PRN; +PROCHLORPERAZINE 10 MG/2 ML VIAL. IV PRN; +fentaNYL PF VIAL 100 MCG/2 ML VIAL IV PRN
[2017-11-06 11:53] LABS: NEG OBC UR NEG; POS OBC UR POS
[2017-11-06] MEDS ORDERED: fentaNYL PF VIAL 100 MCG/2 ML VIAL ONE ×2 (12:06→13:16)
[2017-11-06] MEDS ORDERED: MIDAZOLAM HCL/PF 2 MG/2 ML VIAL. ONE (12:06)
[2017-11-06] MEDS ORDERED: PROPOFOL 20 ML IV ONE (12:07)
[2017-11-06] MEDS ORDERED: ONDANSETRON PF 4 MG/2 ML VIAL. ONE (12:07)
[2017-11-06] MEDS ORDERED: DEXAMETHASONE SOD PHOS 20 MG/5 ML VIAL. ONE (12:07)
[2017-11-06] MEDS ORDERED: LIDOCAINE 2% PF Vial for OR 5 ML VIAL. ONE (12:07)
[2017-11-06] MEDS ORDERED: FAMOTIDINE 20 MG/2 ML VIAL ONE (13:06)
[2017-11-06] MEDS ORDERED: BUPIVACAINE MPF 0.5% 30 ML VIAL. ONE (13:18)
[2017-11-06] MEDS ORDERED: SEVOFLURANE 16 TO 30 MINUTES. IH ONE (13:29)
[2017-11-06] MEDS ORDERED: SEVOFLURANE 61 TO 120 MINUTES. IH ONE (13:29)
[2017-11-06] MEDS ORDERED: SEVOFLURANE 31 TO 60 MINUTES. IH ONE (13:29)
[2017-11-06] MEDS: fentaNYL PF VIAL 100 MCG/2 ML VIAL IV PRN ×3 (13:50→15:24)
[2017-11-06] MEDS: MORPHINE SULFATE 2 MG/ML DISP.SYRIN. IV PRN ×4 (14:20→15:05)
[2017-11-06] MEDS ORDERED: oxyCODONE/APAP 7.5/325 1 TAB TABLET ONE (14:28)
[2017-11-06] MEDS ORDERED: oxyCODONE/APAP 7.5/325 1 TAB TABLET PO ONE (14:30)
--- NOTE | 2017-11-06 14:44 | DISCH ---
DISCHARGE INSTRUCTIONS Condition on Discharge Condition on Discharge: Stable Activity After Discharge Activity Instructions for Disc: Other, see below Other activity instructions: avoid flat-footed weightbearing to protect right foot incision Bathing Instructions: Shower-keep dressing dry Weight Bearing Status after Di: Other, see below (limited weightbearing permissible on right heel for transfers) Diet after Discharge Diet after Discharge: Regular Wound Incision Care Wound/Incision Care: Ice to area for comfort, Keep wound elevated, Do not change dressing Other wound/incision instructi: keep dry and bagged in shower Contacting the DRNatalia after DC Call your doctor for: Concerns you may have Follow-Up Follow up with: Janeth 2 weeks Treatment/Equipment after DC Adaptive Equipment Issued: Crutches (has crutches at home) ENEIDA RIGGS MD Nov 06, 2017 14:44
[2017-11-06] MEDS ORDERED: OXYC-327 PO (14:45)
--- NOTE | 2017-11-06 14:50 | PDOC4 ---
Operative Note Operative Note Date of surgery: 11/06/2017 Preoperative diagnosis: Nonhealing right foot Smith fracture Postoperative diagnosis: Same Operative procedure: Operative reduction internal fixation right fifth metatarsal Smith fracture Surgeon: Janeth Anesthesia: Gen. endotracheal Estimated blood loss: 25 mL Complications: None Operative indications: Patient underwent closed treatment of a right foot Smith fracture of the fifth metatarsal initially with some nonweightbearing later with protected weightbearing as directed in a boot and has had ongoing pain and increased deformity of the fracture without evidence of healing. We talked through risks benefits postoperative course of possible fixation additional nonoperative treatment is possible and is a concern with healing due to the relative lack of blood supply in this area. Furthermore she is very active and wishes to reseed with activities soon as possible and would like to be less restricted in terms of her weightbearing and activities as possible. We talked through risks benefits postoperative course including possibility of infection nonhealing nerve or blood vessel damage medical or other anesthetic complications among others informed consent was obtained and she agrees to proceed with surgical evaluation and treatment Operative text: Patient was identified procedure verified patient placed in the supine position on the operating table. After adequate amounts of general endotracheal anesthesia were administered a thigh tourniquet was placed but not inflated and the right lower extremity was prepped and draped in standard sterile fashion after timeout was performed patient procedure identified and verified a proximally 1 inch incision was made proximal to the fifth metatarsal base and a guidewire for a 5.0 mm cannulated titanium screw provided by Olga was advanced under fluoroscopic guidance and noted to be intramedullary on multiple fluoroscopic views. The area was overdrilled and a 60 mm 5.0 titanium cannulated screw was placed with excellent compression noted to be intramedullary throughout and excellent bite was obtained with essentially anatomic fracture reduction under multiple fluoroscopic views. Thorough irrigation carried out normal saline solution bleeding points controlled by electrocautery subcutaneous closure with buried Vicryl suture skin closure with nylon in a vertical mattress fashion sterile dressings were applied patient was returned recovery room in stable condition having tolerated procedure well ENEIDA RIGGS MD Nov 06, 2017 14:50
[2017-11-06 15:30] VITALS: BP 115/65
--- NOTE | 2017-11-14 11:31 | PREOP HP ---
DATE OF SERVICE: 11/06/2017 The requisite information was actually not in her previous note the day before. CHIEF COMPLAINT: Right foot fracture. HISTORY OF PRESENT ILLNESS: The patient was initially treated nonoperatively for a Smith fracture of her right fifth metatarsal that was initially closed and nondisplaced; however, with her nonoperative treatment, the fracture displaced somewhat more and is still painful, not showing signs of healing. She was concerned with her possible limitations in daily activities, sports, and she really has been compliant with the treatment recommendations despite the nonhealing. 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 PAST SURGICAL HISTORY: Cochlear implants, Achilles tendon repair, ankle fracture surgery, left shoulder arthroscopy and a left knee ligament reconstruction. FAMILY HISTORY: Significant for diabetes, heart disease and hypertension in her mother. Father, sister and brother alive and healthy, as are her son and daughter. SOCIAL HISTORY: Denies smoking or drug use. Occasional alcohol. 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 ALLERGIES: She has no known drug allergies. MEDICATIONS: List is reviewed. PHYSICAL EXAMINATION: GENERAL: This is a pleasant, cooperative female, alert and oriented, no acute distress. VITAL SIGNS: Height 65-3/4 inches. Weight 229, blood pressure 96/67, heart rate 74, temperature 98.6. HEENT: Atraumatic, normocephalic. HEART: Regular rate and rhythm. LUNGS: Clear to auscultation bilaterally. ABDOMEN: Benign. EXTREMITIES: Examination of the right foot reveals a tenderness over the proximal portion of the right fifth metatarsal shaft. No overlying skin problems. Normal alignment. She has an incision from previous knee ligament reconstruction, normal alignment, stability of hips, knees and ankles bilaterally. IMAGING: X-rays show a closed Smith fracture of the right fifth metatarsal shaft base that has increasing displacement from her initial films and is not showing healing. IMPRESSION: Right fifth metatarsal Smith fracture. TREATMENT PLAN: I previously discussed with her treatment options including operative stabilization, the fact that this does not really make it heal faster; however, it does stabilize while it is healing and could get her back to some of her activities dependent on healing and progress. All her questions were answered. She wishes to proceed with surgical evaluation and treatment, which will occur today. ENEIDA RIGGS MD DR: INDIRA/annika JOB#: [id number] / [id number]
== END 2017-11-06 16:07 | disposition home or self-care (01) ==
LOC: SURG 10:33
PROVIDERS: ATTEND Orthopaedic Surgery
DX: S92.351A Displaced fracture of fifth metatarsal bone, right foot, initial encounter for closed fracture (principal); F41.9 Anxiety disorder, unspecified; E66.9 Obesity, unspecified; K21.9 Gastro-esophageal reflux disease without esophagitis; J45.909 Unspecified asthma, uncomplicated; X58.XXXA Exposure to other specified factors, initial encounter; Y93.89 Activity, other specified; Y92.89 Other specified places as the place of occurrence of the external cause; Y99.8 Other external cause status; Z98.890 Other specified postprocedural states
CPT/HCPCS: 28485; 76000; 81025; C1713; J0690; J1100; J2250; J2270; J2405; J2704; J3010; J3490; J7120; S0028; J2001

== ENCOUNTER 2018-09-19 07:21 | Day surgery (SDC) | payer MEDICARE, OTHER ==
[~2018-09-19] VITALS: Ht 167.6 cm; Wt 104.8 kg
[~2018-09-19 07:21] MED LIST changes: +FERRIC SUBSULFATE 8 ML SOL.W.APPL TP ONE; +LIDOCAINE 1%/EPI 1:100,000 20 ML VIAL. ONE; +MORPHINE SULFATE 2 MG/ML VIAL. IV PRN
[2018-09-19 08:27] LABS: U PREG PATIENT NEGATIVE (NEG)
[2018-09-19] MEDS ORDERED: fentaNYL PF VIAL 100 MCG/2 ML VIAL ONE ×2 (08:46→11:25)
[2018-09-19] MEDS ORDERED: DESFLURANE 31 TO 60 MINUTES IH ONE (08:50)
[2018-09-19] MEDS ORDERED: ONDANSETRON PF 4 MG/2 ML VIAL. ONE (08:51)
[2018-09-19] MEDS ORDERED: KETOROLAC 30 MG/ML INJ FOR OR. INJ ONE (08:51)
[2018-09-19] MEDS ORDERED: DEXAMETHASONE SOD PHOS 20 MG/5 ML VIAL. ONE (08:51)
[2018-09-19] MEDS ORDERED: PROPOFOL 20 ML IV ONE ×2 (08:51→10:24)
--- NOTE | 2018-09-19 10:46 | PDOC ---
BRIEF OPERATIVE NOTE Date: Sep 19, 2018 Pre-Op Diagnosis Cervical Dysplasia Post-Op Diagnosis SAme Procedure Performed Cervical Cone Bx Surgeon Dr. Holm Anesthesia Type: General Blood Loss 10 ml Specimens Obtained cervical cone bx Findings cervical dysplasia Complications none Operative Note see dictation LIAN HOLM Jr, MD Sep 19, 2018 10:46
--- NOTE | 2018-09-19 10:46 | DISCH ---
DISCHARGE INSTRUCTIONS Condition on Discharge Condition on Discharge: Stable Activity After Discharge Activity Instructions for Disc: Activity as tolerated, Other, see below Bathing Instructions: Shower-keep dressing dry Lifting Instructions after Dis: No heavy lifting Driving Instructions after Dis: Do not drive today Weight Bearing Status after Di: Other, see below Diet after Discharge Diet after Discharge: Regular Diet Texture: Regular Wound Incision Care Wound/Incision Care: Ice to area for comfort, Keep wound elevated, Do not change dressing Contacting the DRNatalia after DC Call your doctor for: Concerns you may have Follow-Up Follow up with: Dr. Holm in 1 week Treatment/Equipment after DC Adaptive Equipment Issued: LIAN Villalobos Jr, MD Sep 19, 2018 10:46
[2018-09-19] MEDS ORDERED: OXYC-323 PO (10:59)
[2018-09-19 12:15] VITALS: BP 112/64
--- NOTE | 2018-09-19 13:23 | OP ---
DATE OF SURGERY: 09/19/2018 PREOPERATIVE DIAGNOSIS: Cervical dysplasia. POSTOPERATIVE DIAGNOSIS: Cervical dysplasia. PROCEDURE: Cervical cone biopsy. SURGEON: Raymond Holm MD ANESTHESIA: GETA. ESTIMATED BLOOD LOSS: 10 mL. COMPLICATIONS: None. FINDINGS: Cervical dysplasia. SUMMARY: A 33-year-old female with cervical dysplasia, requiring cervical cone biopsy. The patient was counseled on risks, benefits and expectations and voiced clear understanding to proceed. DESCRIPTION OF PROCEDURE: The patient was taken to surgery suite and placed in dorsal lithotomy position. She was prepped with Betadine solution and draped in sterile fashion. After adequate anesthesia, weighted speculum was placed. Single tooth tenaculum was placed on the anterior lip of the cervix. 1% lidocaine with epinephrine was injected circumferentially. 2-0 Vicryl sutures placed at 3 o'clock and 9 o'clock position to help stabilize the cervix. Cold knife cone biopsy was performed with angle scalpel, removing anterior and posterior lip of the cervix. The remaining cervix was cauterized with monopolar cautery. The cervix was hemostatic. The single tooth tenaculum and weighted speculum were removed. The patient tolerated the procedure well and was sent to recovery room in stable condition. Sponge and needle count correct x 3. RAYMOND HOLM MD DR: ZAHIRA/annika JOB#: [id number] / [id number]
--- NOTE | 2018-09-20 17:10 | PATHOLOGY ---
[facility] Accession Number: [id number] . 01 Material submitted: . CERVICAL CONE BIOPSY . 01 Clinical history: . Cervical dysplasia. . 02 Diagnosis: Cervix, LEEP cone biopsy: - Mild dysplasia (COLIN-I), focal. - Squamous metaplasia, extensive. - Moderate acute and chronic inflammation. . (Please see comment) S/09/20/2018 . 02 Comment: No evidence of a high-grade squamous intraepithelial lesion is seen in this cone biopsy specimen. (SKM:gino; 09/20/2018) . 02 Electronically signed: . Ricardo Collier MD, Pathologist NPI- [id number] . 01 Gross description: . Received in formalin labeled "Yeyo Kovacs, cervical cone biopsy suture 12:00" is an oriented cervical conization specimen measuring 2.5 x 2.3 x 1.4 cm. The ectocervical mucosa is guthrie-pink and smooth with a centrally located cervical os measuring 0.8 cm. The ectocervical resection margin is inked green and the deep resection margin is inked black. The specimen is radially sectioned and submitted entirely as follows: . A1 12:00 to 3:00 A2-A3 3:00 to 6:00 A4 6:00 to 9:00 A5 9:00 to 12:00 (SK; 09/19/2018) SYC/SYC . 02 Microscopic: . . . 02 Pathologist provided ICD-10: N87.0, N72 . 02 CPT . 710202 Specimen Comment: A courtesy copy of this report has been sent to Specimen Comment: [phone], . Specimen Comment: Report sent to / DR CHOI Performed at: 01 [facility] [address], [place], [place] [id number] MD Rio Banerjee MD Phone: [phone] Performed at: 02 [facility] [address] [place], [place] [id number] MD Uche Gomez MD Phone: [phone]
== END 2018-09-19 12:15 | disposition home or self-care (01) ==
LOC: SURG 07:21
PROVIDERS: ATTEND Obstetrics & Gynecology
DX: N87.0 Mild cervical dysplasia (principal); N72 Inflammatory disease of cervix uteri; J45.909 Unspecified asthma, uncomplicated; Z79.899 Other long term (current) drug therapy; Z98.890 Other specified postprocedural states
CPT/HCPCS: 57520; 81025; 88307; A7015; J0690; J1100; J1885; J2405; J2704; J3010; J3490